=== PATIENT | female | born 2000 | race Caucasian/White ===

== ENCOUNTER 2023-11-04 16:09 | Emergency (ER) | payer SELFPAY ==
[2023-11-04 16:13] VITALS: BP 139/99; PULSE 105; RESP 20; TEMP 37.2; O2SAT 96; BMI 36.6
[2023-11-04 17:19] LABS: SARS-CoV-2 Ag POSITIVE (NEGATIVE)
[2023-11-04 17:22] LABS: Influenza Virus A Antigen Negative; Influenza Virus B Antigen Negative; Internal Control Within Normal Limits
--- NOTE | 2023-11-04 17:26 | ED.URI1 ---
HPI - URI/Sore Throat General Chief Complaint: Upper Respiratory Infection Stated Complaint: Upper Respitatory Infection Time Seen by Provider: 11/04/23 16:31 Source: patient History of Present Illness HPI Narrative: Patient is a 23-year-old Female who presents to the emergency department for flulike illness that began yesterday. She reports fevers, cough, congestion, sore throat, body aches, diarrhea. No vomiting. No concern for . She has been using vput-[id number] medications without improvement. No sick contacts in the home. Related Data Previous Rx's Medication Instructions Recorded sbyxyehijsfrrsg-fwimhhfxtcrjhhl-LS 10 ml PO Q6H PRN cold symptoms 11/04/23 2 mg-30 mg-10 mg/5 mL oral syrup #200 mL (Bromfed DM) ondansetron 4 mg disintegrating 4 mg PO Q6H PRN nausea and 11/04/23 tablet vomiting #12 tabs Allergies Allergy/AdvReac Type Severity Reaction Status Date / Time No Known Drug Allergies Allergy Verified 11/04/23 16:16 Review of Systems ROS Constitutional Reports: fever and chills Ears, nose, mouth, and throat Reports: throat pain and nasal congestion Cardiovascular Denies: chest pain Respiratory Reports: cough; Denies: shortness of breath Gastrointestinal Reports: nausea and diarrhea; Denies: vomiting Musculoskeletal Denies: back pain or neck pain Integumentary/Breast Denies: rash Neurological Reports: headache Exam Narrative Exam Narrative: Gen.: Awake, alert, in no distress Head: Normocephalic, atraumatic ENT: Moist mucous membranes, Bilateral TMs clear and no pharyngeal erythema. Hoarse voice. Uvula midline with airway widely open and patent. Respiratory: No respiratory distress, lungs clear bilaterally Cardio: Regular rate and rhythm Extremities: Moves extremities equally Psych: Normal mood and affect Neuro: No focal neuro deficit Skin: Warm, dry, intact Constitutional Vital Signs, click to edit/add: Last Vital Signs Temp 99.0 F 11/04/23 16:13 Pulse 105 H 11/04/23 16:13 Resp 20 11/04/23 16:13 BP 139/99 H 11/04/23 16:13 Pulse Ox 96 11/04/23 16:13 O2 Del Method Room Air 11/04/23 16:13 Course Vital Signs Vital signs: Vital Signs Temperature 99.0 F 11/04/23 16:13 Pulse Rate 105 H 11/04/23 16:13 Respiratory Rate 20 11/04/23 16:13 Blood Pressure 139/99 H 11/04/23 16:13 Pulse Oximetry 96 11/04/23 16:13 Oxygen Delivery Method Room Air 11/04/23 16:13 Temperature 99.0 F 11/04/23 16:13 Pulse Rate 105 H 11/04/23 16:13 Respiratory Rate 20 11/04/23 16:13 Blood Pressure 139/99 H 11/04/23 16:13 Pulse Oximetry 96 11/04/23 16:13 Oxygen Delivery Method Room Air 11/04/23 16:13 MDM - URI/Sore Throat MDM Narrative Medical decision making narrative: Patient tested positive for COVID, vital signs stable, lungs clear. She is discharged with Bromfed-DM, Zofran. Decadron given in the ER. Increase fluids and Motrin and Tylenol for comfort. Follow-up PCP and return to the ER if symptoms change or worsen Medical Records Attestation: I reviewed the patient's medical records. Lab Data Attestation: I reviewed the patient's lab results. Labs: Lab Results 11/04/23 Range/Units 16:19 Influenza Type A Ag Negative Influenza Type B Ag Negative SARS-CoV-2 Ag (CV2AG) Positive A (NEGATIVE) Discharge Plan Discharge Chief Complaint: Upper Respiratory Infection Clinical Impression: COVID-19 Patient Disposition: Home, Self-Care Time of Disposition Decision: 17:24 Condition: Good Prescriptions / Home Meds: New gzdgvkgurjudfke-fkpokgrbn-QK [Bromfed DM] 2-30-10 mg/5 mL syrup 10 ml PO Q6H PRN (Reason: cold symptoms) Qty: 200 0RF ondansetron 4 mg tablet,disintegrating 4 mg PO Q6H PRN (Reason: nausea and vomiting) Qty: 12 0RF Instructions: COVID-19 (Coronavirus Disease 2019) (ED), How to Recover from COVID-19 at Home (ED) Stand Alone Forms: Portal Instructions Referrals: Physician,Non-Staff, MD [Primary Care Provider] - 1 week
[2023-11-04] MEDS: DEXAMETHASONE SOD PHOS 10 MG/ML VIAL PO (17:34)
== END 2023-11-04 17:39 | disposition home or self-care (01) ==
PROVIDERS: Emergency Provider Emergency Medicine Emergency Medical Services
DX: U07.1 COVID-19 (principal)
CPT/HCPCS: 87804; 87811; 99284; J1100

== ENCOUNTER 2024-02-11 17:43 | Emergency (ER) | payer MEDICAID, SELFPAY ==
--- NOTE | 2024-02-11 17:49 | ED_ITS ---
HPI HPI - General Adult General Chief complaint: Headache Stated complaint: migraine, body aches Time Seen by Provider: 02/11/24 17:49 History of Present Illness HPI narrative: Patient is a 23-year-old female with a history of ocular migraine who presents to the emergency department for 6-day history of headache located in the right eye and oriental orthodox. She states she has had similar migraines in the past but this headache is persisting longer than normal. She has not had imaging for her head in approximately 8 years. She denies any falls or injuries. She has not had any fevers, chills, upper respiratory symptoms but she states she is diffusely achy and has bodyaches throughout. She is not concerned for . She has been using Advil with some relief but the headache returns quickly. She has not had any visual loss, vomiting. She reports decreased oral intake as she has poor appetite. Related Data Previous Rx's ?Medication ?Instructions ?Recorded ketorolac 10 mg tablet 10 mg PO TID PRN pain #10 tabs 02/11/24 methocarbamol 750 mg tablet 750 mg PO TID PRN pain #20 tabs 02/11/24 ondansetron 4 mg disintegrating 4 mg PO Q6H PRN nausea and 02/11/24 tablet vomiting #12 tabs Allergies Allergy/AdvReac Type Severity Reaction Status Date / Time No Known Drug Allergies Allergy Verified 11/04/23 16:16 Opioid HPI Opioid Management Most Recent Opioid Data: Last Pain Scale 8 02/11/24 18:33 Last MAR Pain Assessment 02/11/24 18:33 Review of Systems ROS Constitutional Denies: fever or chills Ears, nose, mouth, and throat Denies: throat pain, neck pain or nasal congestion Cardiovascular Denies: chest pain Respiratory Denies: shortness of breath or cough Gastrointestinal Denies: nausea or vomiting Genitourinary Denies: painful urination Musculoskeletal Reports: back pain; Denies: neck pain Integumentary/Breast Denies: rash Neurological Reports: headache; Denies: numbness in extremities or weakness in extremities Endocrine Denies: excessive urination Hematologic/Lymphatic Denies: easy bruising or easy bleeding Exam Narrative Exam Narrative: Gen.: Awake, alert, in no distress Head: Normocephalic, atraumatic, No photophobia noted ENT: Moist mucous membranes, Bilateral TMs clear, no pharyngeal erythema, no nuchal rigidity or meningismus. Respiratory: No respiratory distress, lungs clear bilaterally Cardio: Regular rate and rhythm Extremities: Moves extremities equally Psych: Normal mood and affect Neuro: No focal neuro deficit Skin: Warm, dry, intact Constitutional Vital Signs, click to edit/add: Last Vital Signs Temp 99.3 F 02/11/24 17:50 Pulse 65 02/11/24 19:40 Resp 14 02/11/24 19:40 BP 111/54 02/11/24 19:40 Pulse Ox 99 02/11/24 19:40 O2 Del Method Room Air 02/11/24 19:40 Course Vital Signs Vital signs: Vital Signs Temperature 99.3 F 02/11/24 17:50 Pulse Rate 90 02/11/24 17:50 Respiratory Rate 18 02/11/24 17:50 Blood Pressure 121/82 02/11/24 17:50 Pulse Oximetry 100 02/11/24 17:50 Oxygen Delivery Method Room Air 02/11/24 17:50 Temperature 99.3 F 02/11/24 17:50 Pulse Rate 65 02/11/24 19:40 Respiratory Rate 14 02/11/24 19:40 Blood Pressure 111/54 02/11/24 19:40 Pulse Oximetry 99 02/11/24 19:40 Oxygen Delivery Method Room Air 02/11/24 19:40 Medical Decision Making MDM Narrative Medical decision making narrative: CT of the brain, lab studies, viral swabs are all negative. Patient is treated with IV fluids, Toradol, Reglan, Benadryl in the ER. Patient is resting comfortably on reevaluation, she states her headache is improving and after her fluids are done she will be discharged home with prescriptions to follow-up with PCP and return to the ER if symptoms change or worsen Medical Records Medical records reviewed: Yes I reviewed the patient's medical records Lab Data Lab results reviewed: Yes I reviewed the patient's lab results Labs: Lab Results 02/11/24 02/11/24 Range/Units 18:00 18:12 WBC 6.2 (4.0-11.0) 10^3/uL RBC 4.63 (4.20-5.40) 10^6/uL Hgb 12.3 (12.0-16.0) g/dL Hct 39.4 (36.0-48.0) % MCV 85.1 (81.0-99.0) fL MCH 26.6 L (26.7-34.0) pg MCHC 31.2 (29.9-35.2) g/dL RDW 14.2 (11.0-15.0) % Plt Count 260 (150-450) 10^3/uL MPV 9.2 L (9.5-13.5) fL Neut % (Auto) 48.2 (43.0-75.0) % Lymph % (Auto) 39.0 (20.5-60.0) % [place] % (Auto) 11.0 (1.7-12.0) % Eos % (Auto) 1.1 (0.9-7.0) % Baso % (Auto) 0.5 (0.2-2.0) % Neut # (Auto) 3.0 (1.4-6.5) 10^3/uL Lymph # (Auto) 2.4 (1.2-3.8) 10^3/uL [place] # (Auto) 0.7 (0.3-0.8) 10^3/uL Eos # (Auto) 0.1 (0.0-0.7) 10^3/uL Baso # (Auto) 0.0 (0.0-0.1) 10^3/uL Abs Immat Gran (auto) 0.01 (0.00-0.03) 10^3/uL Imm/Tot Granulo (auto) 0.2 (0.0-0.5) % Sodium 138 (136-145) mmol/L Potassium 3.9 (3.5-5.1) mmol/L Chloride 102 (98-107) mmol/L Carbon Dioxide 27.1 (21.0-32.0) mmol/L Anion Gap 12.8 BUN 11.0 (7.0-18.0) mg/dL Creatinine 0.66 (0.55-1.02) mg/dL Est GFR ( Amer) >60 (>=60) Est GFR (Non-Af Amer) >60 (>=60) BUN/Creatinine Ratio 16.7 Glucose 91 (74-106) mg/dL Calcium 9.6 (8.5-10.1) mg/dL Serum HCG, Qual Negative (NEGATIVE) Influenza Type A Ag Negative Influenza Type B Ag Negative RSV Antigen Not detected (NOT DETECTE) SARS-CoV-2 Ag (CV2AG) Negative (NEGATIVE) Imaging Data CT scan - head: Attestation: I have reviewed the pertinent imaging results. Radiologist's impression: ITS Impressions Head CT 02/11/24 18:28 IMPRESSION: No acute intracranial process. Electronically authenticated by: WALDO WHITE Date: 02/11/2024 18:54 Discharge Plan Discharge Stand Alone Forms: Portal Instructions Chief Complaint: Headache Clinical Impression: Headache Patient Disposition: Home, Self-Care Time of Disposition Decision: 19:00 Condition: Good Prescriptions / Home Meds: New ketorolac 10 mg tablet 10 mg PO TID PRN (Reason: pain) Qty: 10 0RF methocarbamol 750 mg tablet 750 mg PO TID PRN (Reason: pain) Qty: 20 0RF ondansetron 4 mg tablet,disintegrating 4 mg PO Q6H PRN (Reason: nausea and vomiting) Qty: 12 0RF Print Language: Irish Instructions: Acute Headache (ED) Referrals: Physician,Non-Staff, MD [Primary Care Provider] - 1 week Discharge Date/Time: 02/11/24 19:46
[2024-02-11 17:50] VITALS: BP 121/82; PULSE 90; TEMP 37.4; O2SAT 100; BMI 37.6
--- OUTSIDE RECORDS SUMMARY | 2024-02-11 17:51 | XMS_ITS | CCD ---
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 Name Role Phone Dayanara Kidd Primary Care Provider [phone] Unavailable Primary Care Provider Micheal Swan MD [facility] Primary Care Provider EMILIANO JEFFERY Attending Unavailable ANGIE DEGROOT Attending Unavailable JASSI Primary Care Unavailable Medications Current Medications Medication Drug Class(es) Dates Sig (Normalized) Sig (Original) {24 (drospirenone 3 MG / ethinyl estradiol 0.02 MG Oral Tablet) / 4 (inert ingredients 1 MG Oral Tablet) } Pack [Susan 28 Day] (2 sources) Progestin, Estrogen Start: 02-25-2021 SUSAN 3-0.02 MG Oral Tablet 02/25/2021 Provider: Dayanara BENJAMIN loperamide hydrochloride 2 mg oral capsule (1 source) Opioid Agonist Start: 05-31-2021 End: 06-10-2021 take 1 capsule by mouth four times daily as needed for diarrhea loperamide (RA ANTI-DIARRHEAL) 2 MG capsule Take 1 capsule by mouth 4 times daily as needed for Diarrhea 20 capsule 0 05/31/2021 06/10/2021 Active predniSONE 10 mg oral tablet (1 source) Start: 04-25-2021 End: 05-01-2021 predniSONE (DELTASONE) 10 MG tablet Take 1 tablet by mouth See Admin Instructions for 6 days Take 4 tablets by mouth daily for days 1-2. Take 3 tablets by mouth daily for days 3-4. Take 2 tablets by mouth daily day 5. Take 1 tablet by mouth on day 6 17 tablet 0 04/25/2021 05/01/2021 Active sertraline 100 mg oral tablet (6 sources) Serotonin Reuptake Inhibitor Start: 02-25-2021 Zoloft 100 MG Oral Tablet 02/25/2021 Provider: Dayanara BENJAMIN Start: 02-25-2021 Zoloft 100 MG Oral Tablet 02/25/2021 Provider: Dayanara BENJAMIN Start: 01-29-2021 Zoloft 50 MG O ral Tablet 01/29/2021 Provider: Dayanara BENJAMIN take 1 tablet by kay th once daily sertraline (ZOLOFT) 100 MG tablet Take 100 mg by mouth daily 0 Active Completed/Discontinued Medications Medication Drug Class(es) Dates Sig (Normalized) Sig (Original) acetaminophen 325 mg oral tablet (1 source) Start: 05-31-2021 End: 05-31-2021 acetaminophen (TYLENOL) tablet 650 mg Start: 05-31-2021 End: 05-31-2021 acetaminophen (TYLENOL) tabl et 650 mg azithromycin 250 mg oral tablet (3 sources) Macrolide Antimicrobial Start: 01-29-2021 End: 02-25-2021 Zithromax Z-Kenny 250 MG Oral Tablet 01/29/2021 - 02/25/2021 Provider: Dayanara BENJAMIN 50 ml sodium chloride 9 mg/ml injection (1 source) Start: 05-31-2021 End: 05-31-2021 0.9 % sodium chloride bolus Problems Active Problems Problem Classification Problem Date Documented Da te Episodic/Chronic Adjustment disorders (13 sources) Adjustment disorder with depressed mood; Translations: [Adjustment disorder with depressed mood] Onset: 01-29-2021 Chronic Contraceptive and procreative management (2 sources) Contraception care management; Translations: [Unspecified contraceptive management] Onset: 02-25-2021 Episodic Immunizations and screening for infectious disease (2 sources) HIV screening; Translations: [Special screening examination for other specified viral diseases] Onset: 01-29-2021 Episodic Other connective tissue disease (1 source) Tendonitis of right wrist; Translations: [Other enthesopathies, not elsewhere classified] Episodic Other gastrointestinal disorders (1 source) Diarrhea; Translations: [Diarrhea, unspecified] Episodic Other nutritional; endocrine; and metabolic disorders (5 sources) Simple obesity ; Translations: [Obesity, unspecified] Onset: 01-29-2021 Chronic Other nutritional; endocrine; and metabolic disorders (4 sources) Finding of body mass index; Translations: [Body mass index (observable entity)] Onset: 01-29-2021 Chronic Other screening for suspected conditions (not mental disorders or infectious disease) (3 sources) Encounter for screening for diabetes mellitus; Translations: [Diabetes Risk Test Score] Onset: 01-29-2021 Episodic Other upper respiratory infections (3 sources) Acute sinusitis; Translations: [Acute sinusitis, unspecified] Onset: 01-29-2021 Episodic Past or Other Problems Problem Classification Problem Date Documented Date Episodic/Chronic Unclassified (1 source) Finding of body mass index; Translations: [Body mass index (observable entity)] Onset: 01-29-2021 Unclassified (1 source) History AND physical examination; Translations: [Routine (qualifier value)] Onset: 01-29-2021 Unclassified (1 source) HIV screening; Translations: [Assessment of Visit For: Screening Exam For Human Immunodeficiency Virus] Onset: 01-29-2021 Results Test Name Value Interpretation Reference Range Facil ity XR WRIST RIGHT (MIN 3 VIEWS) on 04-25-2021 XR WRIST RIGHT (MIN 3 VIEWS) EXAMINATION: 3 XRAY VIEWS OF THE RIGHT WRIST 04/25/2021 9:04 am COMPARISON: None. HISTORY: ORDERING SYSTEM PROVIDED HISTORY: trauma, pain Reason for Exam: C/o posterior mid carpal pain after lifting object Acuity: Acute Type of Exam: Initial FINDINGS: Carpal bones and alignment are maintained. Distal radius and ulna are intact. No acute fracture or dislocation. IMPRESSION: Negative right wrist. Interpreted by: Tiago Ulrich MD Signed by: Taigo Ulrich MD 04/25/21 Final result Normal [facility] XR WRIST RIGHT (MIN 3 VIEWS) Ordered By: Emiliano Jeffery on 04-25-2021 Negative right wrist. [employer] Phone: EXAMINATION: 3 XRAY VIEWS OF THE RIGHT WRIST 04/25/2021 9:04 am COMPARISON: None. HISTORY: ORDERING SYSTEM PROVIDED HISTORY: trauma, pain Reason for Exam: C/o posterior mid carpal pain after lifting object Acuity: Acute Type of Exam: Initial FINDINGS: Carpal bones and alignment are maintained. Distal radius and ulna are intact. No acute fracture or dislocation. [employer] Phone: [place], [employer] Incoming Radiant Results From [employer] - 04/25/2021 9:16 AM EDT EXAMINATION: 3 XRAY VIEWS OF THE RIGHT WRIST 04/25/2021 9:04 am COMPARISON: None. HISTORY: ORDERING SYSTEM PROVIDED HISTORY: trauma, pain Reason for Exam: C/o posterior mid carpal pain after lifting object Acuity: Acute Type of Exam: Initial FINDINGS: Carpal bones and alignment are maintained. Distal radius and ulna are intact. No acute fracture or dislocation. IMPRESSION: Negative right wrist. [employer] Work Phone: [employer] Work Phone: Vital Signs Date Time Vital Sign Value Performing Clinician Facility 05-31-2021 15:38-0400 Heart rate 75 /min Angie Degroot MD Work Phone: [employer] Work Phone: 05-31-2021 14:31-0400 Body height 170.2 cm Anige Degroot MD Work Phone: [employer] Work Phone: 05-31-2021 14:31-0400 Body mass index (BMI) [Ratio] 36.02 kg/m2 Angie Degroot MD Work Phone: [employer] Work Phone: 05-31-2021 14:31-0400 Body temperature 98.29 [degF] Angie Degroot MD Work Phone: [employer] Work Phone: 05-31-2021 14:31-0400 Body weight 104.33 kg Angie Degroot MD Work Phone: [employer] Work Phone: 05-31-2021 14:31-0400 Diastolic blood pressure 78 mm[Hg] Angie Degroot MD Work Phone: [employer] Work Phone: 05-31-2021 14:31-0400 Respiratory rate 16 /min Angie Degroot MD Work Phone: [employer] Work Phone: 05-31-2021 14:31-0400 SaO2% (BldA) [Mass fraction] 99 % Angie Degroot MD Work Phone: [employer] Work Phone: 05-31-2021 14:31-0400 Systolic blood pressure 121 mm[Hg] Angie Degroot MD Work Phone: [employer] Work Phone: 04-25-2021 08:44-0400 Body temperature 97.81 [degF] Emiliano Jeffery DO Work Phone: [employer] Work Phone: 04-25-2021 08:44-0400 Diastolic blood pressure 74 mm[Hg] Emiliano Jeffery DO Work Phone: [employer] Work Phone: 04-25-2021 08:44-0400 Heart rate 90 /min Emiliano Jeffery DO Work Phone: [employer] Work Phone: 04-25-2021 08:44-0400 Respiratory rate 14 /min Emiliano Jeffery DO Work Phone: [employer] Work Phone: 04-25-2021 08:44-0400 SaO2% (BldA) [Mass fraction] 98 % Emiliano Jeffery DO Work Phone: [employer] Work Phone: 04-25-2021 08:44-0400 Systolic blood pressure 127 mm[Hg] Emiliano Jeffery DO Work Phone: [employer] Work Phone: 02-25-2021 10:51-0400 Body height 170.[address] [facility] Work Phone: [facility] Work Phone: 02-25-2021 10:51-0400 Body mass index (BMI) [Percentile] 99 {percentile} Dayanara Kidd [facility] Work Phone: [facility] Work Phone: 02-25-2021 10:51-0400 Body mass index (BMI) [Ratio] 35.8 kg/m2 Dayanararossy UMANZORP Work Phone: [facility] Work Phone: 02-25-2021 10:51-0400 Body surface area Derived from formula 2.[address] [facility] Work Phone: [facility] Work Phone: 02-25-2021 10:51-0400 Body temperature 99.5 [degF] Dayanara Marti [facility] Work Phone: [facility] Work Phone: 02-25-2021 10:51-0400 Body weight 103.69 kg Dayanara Marti UMANZORP Work Phone: [facility] Work Phone: 02-25-2021 10:51-0400 Diastolic blood pressure 80 mm[Hg] Dayanara Marti UMANZORP Work Phone: [facility] Work Phone: 02-25-2021 10:51-0400 Heart rate 84 /min Dayanara Marti UMANZORP Work Phone: [facility] Work Phone: 02-25-2021 10:51-0400 Respiratory rate 20 /min Dayanara Marti UMANZORP Work Phone: [facility] Work Phone: 02-25-2021 10:51-0400 SaO2% (BldA) [Mass fraction] 99 % Dayanara Marti UMANZORP Work Phone: [facility] Work Phone: 02-25-2021 10:51-0400 Systolic blood pressure 110 mm[Hg] Dayanara Kidd [employer] Work Phone: [facility] Work Phone: 01-29-2021 14:53-0400 BMI (Body Mass Index) 36.4 kg/m2 [facility] Work Phone: 01-29-2021 14:53-0400 Body mass index (BMI) [Percentile] 99 {percentile} [facility] Work Phone: 01-29-2021 14:53-0400 Body Temperature 97.9 [degF] [facility] Work Phone: 01-29-2021 14:53-0400 Body weight 105.42 kg [facility] Work Phone: 01-29-2021 14:53-0400 BP Diastolic 58 mm[Hg] [facility] Work Phone: 01-29-2021 14:53-0400 BP Systolic 96 mm[Hg] [facility] Work Phone: 01-29-2021 14:53-0400 BSA (Body Surface Area) 2.16 m2 [facility] Work Phone: 01-29-2021 14:53-0400 Height 170.18 cm [facility] Work Phone: 01-29-2021 14:53-0400 Pulse (Heart Rate) 102 /min [facility] Work Phone: 01-29-2021 14:53-0400 Pulse Oximetry 98 % [facility] Work Phone: 01-29-2021 14:53-0400 Respiratory Rate 20 /min [facility] Work Phone: 01-29-2021 14:53-0400 SaO2% (BldA) [Mass fraction] 98 % Dayanara Kidd [employer] Work Phone: [facility] Work Phone: Encounters Encounter Date Encounter Type Care Provider Facility Start: 05-31-2021 End: 05-31-2021 Emergency department patient visit ANGIE DEGROOT [facility] Start: 05-31-2021 End: 05-31-2021 Emergency department patient visit Angie Degroot MD Work Phone: [facility] ED Comment on above: Diarrhea, unspecifie d type (Primary Dx) Start: 04-25-2021 End: 04-25-2021 Emergency department patient visit EMILIANOBHUMI JEFFERY [facility] Start: 04-25-2021 End: 04-25-2021 Emergency department patient visit Emiliano Jeffery DO Work Phone: [facility] ED Comment on above: Tendonitis of wrist, right (Primary Dx) Start: 02-25-2021 End: 02-25-2021 FQHC visit, estab pt Mirtha Lara Work Phone: [facility] Work Phone: Start: 01-29-2021 End: 01-29-2021 Established patient Mirtha Lara Work Phone: [facility] Work Phone: Start: 01-29-2021 End: 01-29-2021 New patient Dayanara Kidd Work Phone: [facility] Work Phone: Start: 01-29-2021 End: 01-29-2021 Viscer and infrarenal abdom aorta 1 prosthesis Dayanara Marti BENJAMIN Work Phone: [facility] Work Phone: Procedures Date Procedure Procedure Detail Performing Clinician Start: 04-25-2021 Radex wrist complete minimum 3 views Emiliano Jeffery DO Work Phone: Start: 02-25-2021 Most recent diastoli c blood pressure 80-89 mm hg Dayanara UMANZORP Work Phone: Start: 02-25-2021 Most recent hemoglob in a1c level < 7.0% Dayanara UMANZORP Work Phone: Start: 02-25-2021 Most recent systolic blood pressure <130 mm hg Dayanararossy UMANZORP Work Phone: Start: 02-25-2021 Psychotherapy w/maribell ent 30 minutes Mirtha Lara Work Phone: Start: 02-25-2021 Urine test visual color cmprsn meths Dayanararossy Kidd [facility] Work Phone: Start: 01-29-2021 Antibody hiv-1&hiv-2 single result Dayanararossy Kidd Work Phone: Start: 01-29-2021 Diast bp <80 mm hg Jaquan calle Marti Work Phone: Start: 01-29-2021 Hemoglobin glycosyla mami a1c Dayanararossy Kidd Work Phone: Start: 01-29-2021 Psychotherapy w/maribell ent 30 minutes Mirtha Lara Work Phone: Start: 01-29-2021 Pt-focused hlth risk assmt score doc stnd instrm Dayanararossy Kidd Work Phone: Start: 01-29-2021 Syst bp lt 130 mm hg Ab fidelina Marti Work Phone: NEGATED: Highlighted row has not occurred!Start: 01-29-2021 H/O: surgery Dayanararossy Kidd [facility] Work Phone: Plan of Treatment Date Care Activity Detail Author Start: 06-26-2021 Influenza vaccination Flu vaccine (# 1) [facility] Work Phone: Start: 04-01-2021 FQHC visit, estab pt Medical E stablished Patient [facility] Work Phone: Start: 02-25-2021 Medical Establ ished Patient [facility] Work Phone: Start: 2020 DTaP/Tdap/Td vaccine (1 - Tdap) DTaP/Tdap/Td vaccine (1 - Tdap) [facility] Work Phone: Start: 2017 Screening for Chlamy marbin trachomatis Chlamydia screen [facility] Work Phone: Start: 2016 HIV screening HIV screen [facility] Work Phone: Start: 2013 COVID-19 Vaccine (1) COVID-19 Vaccin e (1) [facility] Work Phone: Start: 2012 HPV vaccine (1 - 2-d ose series) HPV vaccine (1 - 2-dose series) [facility] Desk Phone: Start: 2002 Varicella vaccine (1 of 2 - 2-dose childhood series) Varicella vaccine (1 of 2 - 2-dose childhood series) [facility] Desk Phone: Start: 2001 Hepatitis C screening Hepatitis C sc reen [facility] Work Phone: Payers Date Payer Category Payer Unknown [id number] 2001 Unknown [id number] 2001 Unknown [id number] Social History Date Type Detail Facility Assertion Emotional stress (finding) [facility] Work Phone: Assertion [facility] Work Phone: Assertion Heterosexual (finding) [facility] Work Phone: Assertion Lives with evan machado (finding) [facility] Work Phone: Assertion Full-time employ ment (finding) [facility] Work Phone: Assertion Sexually active (finding) [facility] Work Phone: Assertion Gender identity finding (finding) [facility] Work Phone: Assertion Finding of sexua l orientation (finding) [facility] Work Phone: Tobacco smoking status Unknown if ever smoked [facility] Work Phone: Start: 04-25-2021 End: 05-31-2021 Tobacco smoking status NHIS Never smoker [employer] Phone: Start: 04-25-2021 End: 05-31-2021 Tobacco use and exposure Never used [employer] Start: 04-25-2021 Alcohol Comment sometimes [employer] Work Phone: Start: 2001 Sex Assigned At Not on file [employer] Phone: Exposure to SARS-CoV-2 (event) Not sure [employer] NEGATED: Highlighted row Assertion Criminal behavior (finding) [facility] Work Phone: NEGATED: Highlighted row Assertion Current drinker of alcohol (finding) [facility] Work Phone: NEGATED: Highlighted row Assertion Finding relating to drug misuse behavior (finding) [facility] Work Phone: NEGATED: Highlighted row Assertion Exposure to pollution (event) [facility] Work Phone: NEGATED: Highlighted row Assertion Tobacco user (finding) [facility] Work Phone: NEGATED: Highlighted row Assertion No- not a current tobacco user [facility] Work Phone: Mental Status Date Assessment Result Facility Cognitive function Cognitive fun ctioning was normal Cognitive function finding (finding) [facility] Work Phone: Clinical Notes 01-29-2021 to 05-31-2021 InstructionsAttachments Note Date & Type Note Facility 05-31-2021 Hospital Discharg e instructions Angie Degroot MD - 05/31/2021 Drink plenty of fluids. Imodium as needed for diarrhea. Return for worsening pain, fever, blood in stool or emesis, or if worse in any way. PLEASE RETURN TO THE EMERGENCY DEPARTMENT IMMEDIATELY if your symptoms worsen in anyway or in 8-12 hours if not improved for re-evaluation. You should immediately return to the ER for symptoms such as increasing pain, bloody stool, fever, a feeling of passing out, light headed, dizziness, chest pain, shortness of breath, persistent nausea and/or vomiting, numbness or weakness to the arms or legs, coolness or color change of the arms or legs. Take your medication as indicated and prescribed. If you are given an antibiotic then, make sure you get the prescription filled and take the antibiotics until finished. Please understand that at this time there is no evidence for a more serious underlying process, but that early in the process of an illness or injury, an emergency department workup can be falsely reassuring. You should contact your family doctor within the next 24 hours for a follow up appointment THANK YOU!!! From [facility] and [facility] On behalf of the Emergency Department staff at [facility], I would like to thank you for giving us the opportunity to address your health care needs and concerns. We hope that during your visit, our service was delivered in a professional and caring manner. Please keep [facility] in mind as we walk with you down the path to your own personal wellness. Please expect an automated text message or email from us so we can ask a few questions about your health and progress. Based on your answers, a clinician may call you back to offer help and instructions. Please understand that early in the process of an illness or injury, an emergency department workup can be falsely reassuring. If you notice any worsening, changing or persistent symptoms please call your family doctor or return to the ER immediately. Tell us how we did during your visit at [email or web address] and let us know about your experience The following attachments cannot be sent through Care Everywhere.Diarrhea (Nepali)documented in this encounter [facility] [employer] Work Phone: 01-29-2021 History general Narrative - Reported Includes: Medical History in patient's chart No medical history or no significant history 01/29/2021 Not currently nursing 01/29/2021 Not 01/29/[address] [facility] Work Phone: 1(674) 265-397904-06-2021 History general Narrative - Reported Includes: Medical History in patient's chart Description Last Updated Not currently nursing 02/25/2021 Not 02/25/2021 No medical history or no significant his tory 01/29/2021 [facility] Work Phone: Evaluation note Includes: Assessments for all patient encounters Findings Encounter Date Adjustment disorder with depressed mood Established Patient with Mirthagenaro Ferrariroe 02/25/2021 [Z68.35 - Body mass index [B ME] 35.0-35.9, adult] body mass index Medical Established Patient with Dayanara UMANZORP 02/25/2021 Adjustment disorder with depressed mood Medical Established Patient with Dayanara UMANZORP 02/25/2021 Assessment of visit for: con traceptive management Medical Established Patient with Dayanara UMANZORP 02/25/2021 Obesity due to excess calories Medical E stablished Patient with Dayanara Marti [employer] 02/25/2021 Adjustment disorder with depressed mood Established Patient with Mirtha Ferrariroe 01/29/2021 [Z11.4 - Encounter for mojgan womack for human immunodeficiency virus [HIV]] assessment of visit for: screening for human immunodeficiency virus Medical New Patient with Dayanara UMANZORP 01/29/2021 [Z13.1 - Encounter for mojgan womack for diabetes mellitus] Diabetes Risk Test Score was three score 01/29/2021 Medical New Patient with Dayanara UMANZORP 01/29/2021 [Z68.36 - Body mass index [B ME] 36.0-36.9, adult] body mass index Medical New Patient with Dayanara UMANZORP 01/29/2021 Adjustment disorder with depressed mood Medical New Patient with Dayanara UMANZORP 01/29/2021 Assess acute sinusitis Medical New Patie nt with Dayanara UMANZORP 01/29/2021 Assess routine history and physical Medi bladimir New Patient with Dayanara Kidd [facility] 01/29/2021 Obesity due to excess calories Medical N ew Patient with Dayanara Kidd [facility] 01/29/2021 [facility] Work Phone: Evaluation note* Diagnosis Tendonitis of wrist, right- Primary Other tenosynovitis of hand and wrist [facility]* Diagnosis Diarrhea, unspecified type- Primary [facility] Phone: History of Present illness Narrative History of Present Illness not supported for this document type No History of Present Illness [facility] Work Phone: Hospital Discharge instructions* Instructions* Emiliano Jeffery DO - 04/25/2021 Please make an appointment to follow up with your primary doctor and/or the specialist as we discussed. Take all medications as prescribed. Return to ER if condition worsens or you develop any new/concerning symptoms as we discussed. * Attachments The following attachments cannot be sent through Care Everywhere. * Wrist Tendinitis Exercises (Nepali[facility] Phone: Instructions Instructions not supported for this document type No [facility] Work Phone: Patient problem outcome Narrative Includes: Evaluations & Outcomes for active Goals No [facility] Work Phone: Reason for referral (narrative)No Reason for Referral [facility] Work Phone: Review of systems Narrative - Reported Review of Systems not supported for this document type No Review of Systems [facility] Work Phone: Reason for Referral No Reason for Referral Recorded Assessments Note No prior surgery or no signi ficant history Findings Encounter Date Adjustment disorder with depressed mood BH Established Patient with Mirthagenaro Ferrariroe 01/29/2021 [Z11.4 - Encounter for mojgan womack for human immunodeficiency virus [HIV]] assessment of visit for: screening for human immunodeficiency virus Medical New Patient with Dayanara Kidd [facility] 01/29/2021 [Z13.1 - Encounter for mojgan womack for diabetes mellitus] Diabetes Risk Test Score was three score 01/29/2021 Medical New Patient with Dayanara UMANZORP 01/29/2021 [Z68.36 - Body mass index [B ME] 36.0-36.9, adult] body mass index Medical New Patient with Dayanara Kidd [facility] 01/29/2021 Adjustment disorder with depressed mood Medical New Patient with Dayanara Kidd [facility] 01/29/2021 Assess acute sinusitis Medical New Patie nt with Dayanara Kidd [facility] 01/29/2021 Assess routine history and physical Medi bladimir New Patient with Dayanara Kidd [facility] 01/29/2021 Obesity due to excess calories Medical N ew Patient with Dayanara Kidd [facility] 01/29/2021 Instructions Instructions not supported for this document type No Instructions Recorded History of Present Illness History of Present Illness not supported for this document type No History of Present Illness Recorded Family History No Family History Records Found Description Last Updated Maternal history of endocrine disorder 0 01/29/2021 Maternal history of type 2 diabetes penny itus 01/29/2021 Review of System Review of Systems not supported for this document type No Review of Systems Recorded Physical Exam Physical Exam not supported for this document type No Physical Exam Recorded Physical Exam not supported for this document type No Physical Exam Recorded Physical Exam not supported for this document type No Physical Exam Recorded Advance Directives Includes: Current Advance Directives No Advance Directives Recorded Includes: Current Advance Directives No Advance Directives Recorded Includes: Current Advance Directives No Advance Directives RecordedNo Advanced Directives Records Found Summary Purpose Additional Source Comments Medical History (unrecognize d section and content) Description No medical history or no significant his tory 01/29/2021 Not currently nursing 01/29/2021 Not 01/29/2021 Evaluations & Outcomes (unre cognized section and content) Includes: Evaluations & Outcomes for active GoalsNo Outcomes Recorded Reason for Visit (unrecogniz ed section and content) Reason Comments Wrist Pain right Reason Comments Other thinks she is dehydr ated, diarrhea started last night able to drink and keep down fluids today. Ordered Prescriptions (unrec ognized section and content) Prescription Sig Dispensed Refills Start Date End Da te predniSONE (DELTASONE) 10 MG tablet Take 1 tablet by mouth See Admin Instructions for 6 days Take 4 tablets by mouth daily for days 1-2. Take 3 tablets by mouth daily for days 3-4. Take 2 tablets by mouth daily day 5. Take 1 tablet by mouth on day 6 17 tablet 0 04/25/2021 05/01/2021 Prescription Sig Dispensed Refills Start Date End Da te loperamide (RA ANTI-DIARRHEAL) 2 MG capsule Take 1 capsule by mouth 4 times daily as needed for Diarrhea 20 capsule 0 05/31/2021 06/10/2021 Scheduled Active and Recently Administ ered Medications (unrecognized section and content) Medication Order 05/29/2021 05/30/2021 05/31/2021 0.9 % sodium chloride bolus (COMPLETED) 1,000 mL (9.59 mL/kg), Intravenous, at 1,000 mL/hr, Administer over 1 Hours, ONCE, On Thu05/31/21 at 1445, For 1 dose 1445 (New Bag - Prov ider: Zuly Andrews RN)1538 (Stopped - Provider: Zuly Andrews RN) acetaminophen (TYLENOL) tablet 650 mg (COMPLETED) 650 mg, Oral, ONCE, On Thu05/31/21 at 1445, For 1 dose, Maximum dose of acetaminophen is 4000 mg from all sources in 24 hours. 1443 (Given - Provid er: Zuly Andrews RN) INFORMATION SOURCE (unrecogn ized section and content) DATE CREATED AUTHOR 06/02/2021 [facility] FOR RECORDS PERTAINING TO PATIENTS WHO ARE OR HAVE BEEN ENROLLED IN A CHEMICAL DEPENDENCY/SUBSTANCEABUSE PROGRAM, SOME INFORMATION MAY BE OMITTED. This clinical summary was aggregated from multiple sources. Caution should be exercised in using it in the provision of clinical care. This summary normalizes information from multiple sources, and as a consequence, information in this document may materially change the coding, format and clinical context of patient data. In addition, data may be omitted in some cases. CLINICAL DECISIONS SHOULD BE BASED ON THE PRIMARY CLINICAL RECORDS. [employer] provides no warranty or guarantee of the accuracy or completeness of information in this document.
[2024-02-11 18:25] LABS: Basophils Percent Auto 0.5 % (0.2-2.0); Eosinophils Absolute Auto 0.1 10^3/uL (0.0-0.7); Eosinophils Percent Auto 1.1 % (0.9-7.0); Hematocrit 39.4 % (36.0-48.0); Hemoglobin 12.3 g/dL (12.0-16.0); Immature Granulocytes Abs Auto 0.01 10^3/uL (0.00-0.03); Immature Granulocytes Pct Auto 0.2 % (0.0-0.5); Lymphocytes Absolute Auto 2.4 10^3/uL (1.2-3.8); Mean Corpuscular HGB Conc 31.2 g/dL (29.9-35.2); Mean Corpuscular Hemoglobin 26.6 pg (26.7-34.0); Mean Corpuscular Volume 85.1 fL (81.0-99.0); Mean Platelet Volume 9.2 fL (9.5-13.5); Monocytes Absolute Auto 0.7 10^3/uL (0.3-0.8); Neutrophils Percent Auto 48.2 % (43.0-75.0); Platelet Count 260 10^3/uL (150-450); Red Blood Count 4.63 10^6/uL (4.20-5.40); Red Cell Distribution Width 14.2 % (11.0-15.0); White Blood Count 6.2 10^3/uL (4.0-11.0)
--- NOTE | 2024-02-11 18:28 | CT_ITS ---
The [address] [address] Patient Name: CHEYENNE ALONSO MRN: [id number] date: 2000 Sex: F Assigned Patient Location: ER Current Patient Location: ER Accession/Order Number: [id number] Exam Date: 02/11/2024 18:22 Report Date: 02/11/2024 18:54 At the request of: ABDIFATAH GOMEZ Procedure: CT head/brain wo con EXAM: CT head/brain wo con HISTORY: Headache COMPARISON: None. TECHNIQUE: Axial CT scans through the head were obtained without IV contrast administration. Dose reduction techniques were achieved by using: automated exposure control and/or adjustment of mA and /or kV according to patient size and/or use of iterative reconstruction technique. FINDINGS: There is no acute intracranial hemorrhage or abnormal extra-axial fluid collection. No mass effect or midline shift is seen. There is no evidence of large acute territorial infarction. There is no hydrocephalus. To the limit of CT, the posterior fossa appears unremarkable. The calvaria and extra cranial soft tissues are unremarkable. The visualized orbits show no abnormality. The visualized paranasal sinuses show no air-fluid level. Mastoid air cells are clear. CT/CT head/brain wo con IMPRESSION: No acute intracranial process. Electronically authenticated by: WALDO WHITE Date: 02/11/2024 18:54
[2024-02-11] MEDS: 0.9 % SODIUM CHLORIDE 1,000 ML 1000 ML IV (18:32)
[2024-02-11] MEDS: DIPHENHYDRAMINE HCL 50 MG/ML (1ML) VIAL 25 MG IV (18:33)
[2024-02-11] MEDS: KETOROLAC TROMETHAMINE 30 MG/ML VIAL IVP (18:33)
[2024-02-11] MEDS: METOCLOPRAMIDE HCL 10 MG/2 ML VIAL IVP (18:33)
[2024-02-11 18:37] LABS: Internal Control Within Normal Limits; Respiratory Syncytial Virus Not Detected (NOT DETECTE); SARS-CoV-2 Ag NEGATIVE (NEGATIVE)
[2024-02-11 18:38] LABS: Influenza Virus A Antigen Negative; Influenza Virus B Antigen Negative; Internal Control Within Normal Limits
[2024-02-11 18:39] LABS: Anion Gap 12.8; BUN Creatinine Ratio 16.7; Calcium 9.6 mg/dL (8.5-10.1); Carbon Dioxide 27.1 mmol/L (21.0-32.0); Chloride 102 mmol/L (98-107); Estimated GFR (African America >60 (>=60); Estimated GFR (Non-African Ame >60 (>=60); Glucose 91 mg/dL (74-106); Potassium 3.9 mmol/L (3.5-5.1); Sodium 138 mmol/L (136-145)
[2024-02-11 18:48] LABS: HCG Qualitative NEGATIVE (NEGATIVE)
[2024-02-11 19:40] VITALS: BP 111/54; PULSE 65; O2SAT 99
== END 2024-02-11 19:46 | disposition home or self-care (01) ==
PROVIDERS: Physician Assistant; Emergency Provider Emergency Medicine
DX: R51.9 Headache, unspecified (principal); Z20.822 Contact with and (suspected) exposure to COVID-19
CPT/HCPCS: 36415; 70450; 80048; 84703; 85025; 87420; 87804; 87811; 96374; 96375; 99285

== ENCOUNTER 2024-04-27 09:52 | Emergency (ER) | payer SELFPAY ==
[2024-04-27 09:57] VITALS: BP 120/87; PULSE 89; TEMP 36.9; O2SAT 98; BMI 37.6
[2024-04-27 10:08] VITALS: O2SAT 98
[2024-04-27 10:29] LABS: Basophils Percent Auto 0.3 % (0.2-2.0); Eosinophils Absolute Auto 0.1 10^3/uL (0.0-0.7); Eosinophils Percent Auto 0.7 % (0.9-7.0); Hematocrit 39.6 % (36.0-48.0); Hemoglobin 12.6 g/dL (12.0-16.0); Immature Granulocytes Abs Auto 0.02 10^3/uL (0.00-0.03); Immature Granulocytes Pct Auto 0.3 % (0.0-0.5); Lymphocytes Absolute Auto 2.7 10^3/uL (1.2-3.8); Lymphocytes Percent Auto 38.1 % (20.5-60.0); Mean Corpuscular HGB Conc 31.8 g/dL (29.9-35.2); Mean Corpuscular Hemoglobin 27.4 pg (26.7-34.0); Mean Corpuscular Volume 86.1 fL (81.0-99.0); Mean Platelet Volume 9.1 fL (9.5-13.5); Monocytes Absolute Auto 0.6 10^3/uL (0.3-0.8); Monocytes Percent Auto 8.1 % (1.7-12.0); Neutrophils Absolute Auto 3.8 10^3/uL (1.4-6.5); Neutrophils Percent Auto 52.5 % (43.0-75.0); Platelet Count 282 10^3/uL (150-450); Red Cell Distribution Width 13.2 % (11.0-15.0); White Blood Count 7.1 10^3/uL (4.0-11.0)
--- NOTE | 2024-04-27 10:41 | ED_ITS ---
HPI HPI - General Adult General Chief complaint: Headache Stated complaint: HEADAHCE/ ABDOMINAL PAIN Time Seen by Provider: 04/27/24 09:54 Source: patient Mode of arrival: walk-in History of Present Illness HPI narrative: Patient presents ED complaining of headache. She states it has been there for the past week or so. She said it is worse when she is lying down or bending forward or tipping her head back. She does have a history of migraines but states this feels a little bit different. She did have a negative CT brain in January of this year. She also reports nausea for the past year. She states she wakes up in the night and is nauseated. She has never had that checked out. She is out of Zofran which usually does help her. She does have a history of diagnosed anxiety. She reports that her significant other grandmother recently and her grandmother has a new diagnosis of Alzheimer's so she has been a little bit stressed with that lately.Alert and oriented no acute distress vital signs stable Related Data Previous Rx's ?Medication ?Instructions ?Recorded ondansetron 4 mg disintegrating 4 mg PO DAILY PRN nausea and 04/27/24 tablet vomiting #15 tabs Allergies Allergy/AdvReac Type Severity Reaction Status Date / Time No Known Drug Allergies Allergy Verified 11/04/23 16:16 Opioid HPI Opioid Management Most Recent Opioid Data: Last Pain Scale 8 02/11/24 18:33 Review of Systems ROS Status of ROS 10 or more systems reviewed and unremark able except as noted in history and below Exam Narrative Exam Narrative: Time Seen: [] Vital Signs: [Per nurse's notes.] General: [Alert] Skin: [Warm, dry, no rash.] Head: [Normocephalic, atraumatic.] Neck: [Supple, trachea midline.] Eye: [Pupils are equal, round and reactive to light, extraocular movements are intact, normal conjunctiva.] Ears, nose, mouth and throat: oral mucosa moist. Cardiovascular: [Regular rate and rhythm, no murmur.] Respiratory: [Lungs are clear to auscultation, respirations are non-labored, breath sounds are equal.] Chest wall: [No tenderness, no deformity.] Gastrointestinal: [Soft, nontender, non distended, normal bowel sounds.] MSK: 5 out of 5 muscle strength x 4 extremities no calf pain or edema Lymphatics: [No lymphadenopathy.] Psychiatric: [Cooperative, appropriate mood & affect.] Neurological: [Alert and oriented to person, place, time, and situation, no focal neurological deficit observed.] Constitutional Vital Signs, click to edit/add: Last Vital Signs Temp 98.4 F 04/27/24 09:57 Pulse 89 04/27/24 09:57 Resp 16 04/27/24 09:57 BP 120/87 04/27/24 09:57 Pulse Ox 98 04/27/24 10:08 O2 Del Method Room Air 04/27/24 10:08 Course Vital Signs Vital signs: Vital Signs Temperature 98.4 F 04/27/24 09:57 Pulse Rate 89 04/27/24 09:57 Respiratory Rate 16 04/27/24 09:57 Blood Pressure 120/87 04/27/24 09:57 Pulse Oximetry 98 04/27/24 09:57 Oxygen Delivery Method Room Air 04/27/24 09:57 Temperature 98.4 F 04/27/24 09:57 Pulse Rate 89 04/27/24 09:57 Respiratory Rate 16 04/27/24 09:57 Blood Pressure 120/87 04/27/24 09:57 Pulse Oximetry 98 04/27/24 10:08 Oxygen Delivery Method Room Air 04/27/24 10:08 Medical Decision Making MDM Narrative Medical decision making narrative: Patient's labs are negative for acute. She had a CT brain in January which was negative. I did not think repeat scanning was indicated on today's visit. Patient will be given a prescription for Zofran for home. Continue to hydrate and rest as needed. Take the Zofran as needed. Return to ED if worsening symptoms, follow-up with family doctor. Differential Diagnosis Differential Diagnosis: Migraine, headache, viral syndrome, electrolyte abnormality Medical Records Medical records reviewed: Yes I reviewed the patient's medical records Lab Data Lab results reviewed: Yes I reviewed the patient's lab results Labs: Lab Results 04/27/24 04/27/24 Range/Units 10:03 10:19 WBC 7.1 (4.0-11.0) 10^3/uL RBC 4.60 (4.20-5.40) 10^6/uL Hgb 12.6 (12.0-16.0) g/dL Hct 39.6 (36.0-48.0) % MCV 86.1 (81.0-99.0) fL MCH 27.4 (26.7-34.0) pg MCHC 31.8 (29.9-35.2) g/dL RDW 13.2 (11.0-15.0) % Plt Count 282 (150-450) 10^3/uL MPV 9.1 L (9.5-13.5) fL Neut % (Auto) 52.5 (43.0-75.0) % Lymph % (Auto) 38.1 (20.5-60.0) % [place] % (Auto) 8.1 (1.7-12.0) % Eos % (Auto) 0.7 L (0.9-7.0) % Baso % (Auto) 0.3 (0.2-2.0) % Neut # (Auto) 3.8 (1.4-6.5) 10^3/uL Lymph # (Auto) 2.7 (1.2-3.8) 10^3/uL [place] # (Auto) 0.6 (0.3-0.8) 10^3/uL Eos # (Auto) 0.1 (0.0-0.7) 10^3/uL Baso # (Auto) 0.0 (0.0-0.1) 10^3/uL Abs Immat Gran (auto) 0.02 (0.00-0.03) 10^3/uL Imm/Tot Granulo (auto) 0.3 (0.0-0.5) % Sodium 137 (136-145) mmol/L Potassium 3.8 (3.5-5.1) mmol/L Chloride 103 (98-107) mmol/L Carbon Dioxide 25.8 (21.0-32.0) mmol/L Anion Gap 12.0 BUN 12.0 (7.0-18.0) mg/dL Creatinine 0.58 (0.55-1.02) mg/dL Est GFR ( Amer) >60 (>=60) Est GFR (Non-Af Amer) >60 (>=60) BUN/Creatinine Ratio 20.7 Glucose 93 (74-106) mg/dL Calcium 8.7 (8.5-10.1) mg/dL Total Bilirubin 0.4 (0.2-1.0) mg/dL AST 12 L (15-37) U/L ALT 22 (14-59) U/L Alkaline Phosphatase 74 (46-116) U/L Total Protein 7.1 (6.4-8.2) g/dL Albumin 3.3 L (3.4-5.0) g/dL Globulin 3.8 g/dL Albumin/Globulin Ratio 0.9 Urine Color Lt. yellow (YELLOW) Urine Clarity Clear (CLEAR) Urine pH 7.5 (5.0-9.0) Ur Specific [place] 1.020 (1.005-1.025) Urine Protein Negative (NEG/TRACE) mg/dL Urine Glucose (UA) Negative (NEGATIVE) mg/dL Urine Ketones Negative (NEGATIVE) mg/dL Urine Occult Blood Negative (NEGATIVE) Urine Nitrite Negative (NEGATIVE) Urine Bilirubin Negative (NEGATIVE) Urine Urobilinogen 1.0 (0.2-1.0) EU/dL Ur Leukocyte Esterase Small A (NEGATIVE) Urine RBC 2-5 A (0-2) #/HPF Urine WBC 2-5 A (NONE SEEN) #/HPF Ur Squamous Epith Cells Few A (NONE/RARE) #/LPF Urine Crystals None seen (None Seen) #/HPF Urine Bacteria Trace A (NONE SEEN) #/HPF Urine Casts None seen (NONE SEEN) #/LPF Urine Mucus None seen (NONE SEEN) Ur Culture Indicated? Yes Urine HCG, Qual Negative (NEGATIVE) Discharge Plan Discharge Stand Alone Forms: Portal Instructions Chief Complaint: Headache Clinical Impression: Headache Patient Disposition: Home, Self-Care Time of Disposition Decision: 11:13 Condition: Good Mode of Transportation: Private Vehicle Prescriptions / Home Meds: New ondansetron 4 mg tablet,disintegrating 4 mg PO DAILY PRN (Reason: nausea and vomiting) Qty: 15 0RF Print Language: Japanese Instructions: Acute Headache (ED) Referrals: Physician,Non-Staff, MD [Primary Care Provider] - 1 week
[2024-04-27 10:46] LABS: Bilirubin Urine NEGATIVE (NEGATIVE); Blood Urine NEGATIVE (NEGATIVE); Clarity Urine CLEAR (CLEAR); Color Urine LT. YELLOW (YELLOW); Glucose Urine UA NEGATIVE (NEGATIVE); HCG Qualitative Urine* NEGATIVE (NEGATIVE); Internal Control Within Normal Limits; Ketones Urine NEGATIVE (NEGATIVE); Leukocyte Esterase Urine SMALL (NEGATIVE); Nitrite Urine NEGATIVE (NEGATIVE); Protein Urine NEGATIVE (NEG/TRACE); pH Urine 7.5 (5.0-9.0)
[2024-04-27 10:51] LABS: Alanine Aminotransferase 22 U/L (14-59); Albumin Globulin Ratio 0.9; Albumin Level 3.3 g/dL (3.4-5.0); Alkaline Phosphatase 74 U/L (46-116); Aspartate Amino Transferase 12 U/L (15-37); BUN Creatinine Ratio 20.7; Bilirubin Total 0.4 mg/dL (0.2-1.0); Calcium 8.7 mg/dL (8.5-10.1); Carbon Dioxide 25.8 mmol/L (21.0-32.0); Chloride 103 mmol/L (98-107); Estimated GFR (African America >60 (>=60); Estimated GFR (Non-African Ame >60 (>=60); Globulin 3.8 g/dL; Glucose 93 mg/dL (74-106); Potassium 3.8 mmol/L (3.5-5.1); Sodium 137 mmol/L (136-145); Total Protein 7.1 g/dL (6.4-8.2)
[2024-04-27 10:57] LABS: Urine Microscopic Indicated YES
[2024-04-27 10:58] LABS: Bacteria Urine TRACE #/HPF (NONE SEEN); Mucus Urine NONE SEEN (NONE SEEN)
[2024-04-27 10:59] LABS: Cast Seen? NONE SEEN #/LPF (NONE SEEN); Crystals Seen? None Seen #/HPF (None Seen); Squamous Epithelial Cell Urine FEW #/LPF (NONE/RARE); Urine Culture Indicated YES
[2024-04-27 11:43] VITALS: BP 120/87; PULSE 87; O2SAT 99
== END 2024-04-27 11:45 | disposition home or self-care (01) ==
PROVIDERS: Emergency Provider Emergency Medicine
DX: R51.9 Headache, unspecified (principal); F41.9 Anxiety disorder, unspecified
CPT/HCPCS: 36415; 80053; 81001; 84703; 85025; 87086; 99283

== ENCOUNTER 2024-08-26 16:26 | Emergency (ER) | payer SELFPAY ==
[2024-08-26 16:31] VITALS: BP 131/80; PULSE 92; TEMP 37.2; O2SAT 99; BMI 38.7
--- NOTE | 2024-08-26 16:45 | XR_ITS ---
The [address] [address] Patient Name: CHEYENNE DASH MRN: [id number] date: 2000 Sex: F Assigned Patient Location: ER Current Patient Location: ER Accession/Order Number: [id number] Exam Date: 08/26/2024 17:08 Report Date: 08/26/2024 17:42 At the request of: YAA MORALES Procedure: XR chest 1V EXAM: XR chest 1V at 1659 hours HISTORY: fever/ cough COMPARISON: None. TECHNIQUE: AP upright portable chest x-ray FINDINGS: The heart is not enlarged and the vasculature is not distended. No acute infiltrate, effusion or pneumothorax is identified. The osseous structures are grossly intact. XR/XR chest 1V IMPRESSION: No acute infiltrate or evidence of cardiac decompensation. Electronically authenticated by: ASHLEY BAIG Date: 08/26/2024 17:42
--- NOTE | 2024-08-26 16:46 | ED_ITS ---
HPI - URI/Sore Throat General Chief Complaint: Upper Respiratory Infection Stated Complaint: FLU POSSIBLE Time Seen by Provider: 08/26/24 16:38 Source: patient Limitations: no limitations History of Present Illness HPI Narrative: 24-year-old female presents to the ER with concerns of generalized bodyaches, mild shortness of breath, nonproductive cough. Patient states symptoms started 3 days ago with sinus congestion and ear fullness. Subjective fever with bodyaches worsening over the past 3 days. She has some mild nausea but no vomiting. She denies diarrhea or abdominal pain. She is unsure of the possibility of . Patient sitting up breathing in no distress and she did not take any medication prior to arrival. MD elicited complaint: Reports fever, cough, nasal congestion and sinus pain Onset (ago): day(s) (3) Severity: mild Description of mucous: Reports watery Able to tolerate fluids by mouth: Yes Context: Denies sick contacts Associated symptoms: Denies denies other symptoms Related Data Previous Rx's ?Medication ?Instructions ?Recorded azithromycin 250 mg tablet See Rx Instructions PO .COMPLEX #6 08/26/24 (Zithromax Z-Kenny) tabs Allergies Allergy/AdvReac Type Severity Reaction Status Date / Time No Known Drug Allergies Allergy Verified 08/26/24 16:35 Review of Systems ROS Constitutional Reports: fever and chills; Denies: change in weight Eyes Denies: change in vision Ears, nose, mouth, and throat Reports: change in hearing (fullness), nasal congestion and post nasal drip; Denies: throat pain Cardiovascular Denies: chest pain, palpitations, edema or swelling of feet/ankles Respiratory Reports: shortness of breath, cough and wheezing; Denies: stridor Gastrointestinal Denies: abdominal pain, nausea or vomiting Genitourinary Denies: painful urination Musculoskeletal Denies: back pain, neck pain, extremity pain or extremity swelling Integumentary/Breast Denies: rash Neurological Denies: headache Psychiatric Denies: anxiety Endocrine Denies: excessive urination [facility] Medical History (Updated 08/26/24 @ 18:19 by ZEHRA Zuniga) No pertinent past medical history ?Z78.9 - Other specified health status (ICD-10) Surgical History (Updated 08/26/24 @ 16:36 by Tai Mi) No pertinent past surgical history ?Z78.9 - Other specified health status (ICD-10) Social History Little interest or pleasure in doing things: not at all Feeling down, depressed, or hopeless: not at all Exam Narrative Exam Narrative: Nurses notes and vital signs reviewed and patient is not hypoxic. General: The patient appears well and in no apparent distress. Patient is resting comfortably on cart. Skin: Warm, dry, no pallor noted. Head: Normocephalic, atraumatic, mild frontal and maxillary sinus tenderness. Neck: Supple, trachea mid-line, no tenderness, no lymphadenopathy Eye: Pupils are equal, round and reactive to light, EOMI Ears, Nose, Mouth, and Throat: TM are clear, normal light reflex, oral mucosa is moist, no posterior oropharynx erythema or hypertrophy, uvula is mid-line Cardiovascular: Regular Rate and Rhythm Respiratory: Patient is in no distress, no accessory muscle use, lungs are clear to auscultation, no wheezing, rales or rhonchi. Chest Wall: no tenderness Back: non-tender, no CVA tenderness Musculoskeletal: normal ROM, no tenderness, no swelling GI: Normal bowel sounds, no tenderness to palpation, no masses appreciated. No rebound, guarding, or rigidity noted. Neurological: A&O x4 Psychiatric: Cooperative Constitutional Vital Signs, click to edit/add: Last Vital Signs Temp 99 F 08/26/24 16:31 Pulse 92 H 08/26/24 16:31 Resp 20 08/26/24 16:31 BP 131/80 08/26/24 16:31 Pulse Ox 99 08/26/24 16:31 O2 Del Method Room Air 08/26/24 16:31 Course Vital Signs Vital signs: Vital Signs Temperature 99 F 08/26/24 16:31 Pulse Rate 92 H 08/26/24 16:31 Respiratory Rate 20 08/26/24 16:31 Blood Pressure 131/80 08/26/24 16:31 Pulse Oximetry 99 08/26/24 16:31 Oxygen Delivery Method Room Air 08/26/24 16:31 Temperature 99 F 08/26/24 16:31 Pulse Rate 92 H 08/26/24 16:31 Respiratory Rate 20 08/26/24 16:31 Blood Pressure 131/80 08/26/24 16:31 Pulse Oximetry 99 08/26/24 16:31 Oxygen Delivery Method Room Air 08/26/24 16:31 MDM - URI/Sore Throat MDM Narrative Medical decision making narrative: Patient presents with 3 days of subjective fever, body aches and sinus congestion. She notes nonproductive cough and burning sensation in her chest. She denies any chest pain or abdominal pain. Patient medicated with Tylenol for her body aches and headache. Influenza and COVID swab pending. Given cough and recent community pneumonia cases a chest x-ray will be performed and urinalysis to rule out infection/ concerns. Reevaluated, she reports no significant change in symptoms but appears to be feeling better at the bedside. Chest x-ray discussed, swabs negative along with urinalysis. We discussed patient's sinus tenderness, abrupt onset of symptoms for the past 3 days. Recommend [id number] medications for symptoms with decongestions discussed. Patient does not have a family doctor. We discussed a prescription of antibiotics if she is not getting better in the next 48 hours with [id number] medication. She will be given a list of family doctors for follow-up. She may return to the ER at any time if symptoms worsen or new symptoms develop. Patient encouraged not to vape with current illness. The patient is to followup with primary care physician in next 2-3 days or to return to the emergency department should any of the signs or symptoms worsen or new symptoms develop. Patient had questions answered. The patient agrees with the following Diagnosis and Treatment plan and the patient will be discharged home. Differential Diagnosis Differential diagnosis: Likely upper respiratory infection and sinusitis Lab Data Attestation: I reviewed the patient's lab results. Labs: Lab Results 08/26/24 08/26/24 Range/Units 16:41 17:09 Urine Color Lt. yellow (YELLOW) Urine Clarity Clear (CLEAR) Urine pH 6.0 (5.0-9.0) Ur Specific [place] 1.020 (1.005-1.025) Urine Protein Negative (NEG/TRACE) mg/dL Urine Glucose (UA) Negative (NEGATIVE) mg/dL Urine Ketones Negative (NEGATIVE) mg/dL Urine Occult Blood Negative (NEGATIVE) Urine Nitrite Negative (NEGATIVE) Urine Bilirubin Negative (NEGATIVE) Urine Urobilinogen 0.2 (0.2-1.0) EU/dL Ur Leukocyte Esterase Negative (NEGATIVE) Urine HCG, Qual Negative (NEGATIVE) Influenza Type A Ag Negative Influenza Type B Ag Negative SARS-CoV-2 Ag (CV2AG) Negative (NEGATIVE) Imaging Data Chest x-ray: Radiologist's impression: ITS Impressions Chest X-Ray 08/26/24 16:45 IMPRESSION: No acute infiltrate or evidence of cardiac decompensation. Electronically authenticated by: ASHLEY BAIG Date: 08/26/2024 17:42 Discharge Plan Discharge Chief Complaint: Upper Respiratory Infection Clinical Impression: Upper respiratory infection, Sinusitis Patient Disposition: Home, Self-Care Time of Disposition Decision: 17:50 Condition: Good Prescriptions / Home Meds: New azithromycin [Zithromax Z-Kenny] 250 mg tablet See Rx Instructions .ROUTE .COMPLEX Qty: 6 0RF Rx Instructions: For 250 mg dose pack: take 500 mg today (day 1), then 250 mg for 4 days (days 2-5) Print Language: Romanian Instructions: Sinusitis (ED) Additional Instructions: PCP list given. Referrals: Physician,Non-Staff, MD [Primary Care Provider] - 1 week Vannesa Matt NP [Physician] - 1 week
[2024-08-26] MEDS: ACETAMINOPHEN 500 MG TABLET 1000 MG PO (16:58)
[2024-08-26 17:02] LABS: Influenza Virus A Antigen Negative; Influenza Virus B Antigen Negative; Internal Control Within Normal Limits
[2024-08-26 17:03] LABS: Internal Control Within Normal Limits; SARS-CoV-2 Ag NEGATIVE (NEGATIVE)
[2024-08-26 17:22] LABS: Bilirubin Urine NEGATIVE (NEGATIVE); Blood Urine NEGATIVE (NEGATIVE); Clarity Urine CLEAR (CLEAR); Color Urine LT. YELLOW (YELLOW); Glucose Urine UA NEGATIVE (NEGATIVE); Ketones Urine NEGATIVE (NEGATIVE); Leukocyte Esterase Urine NEGATIVE (NEGATIVE); Nitrite Urine NEGATIVE (NEGATIVE); Protein Urine NEGATIVE (NEG/TRACE); Urobilinogen Urine 0.2 EU/dL (0.2-1.0)
[2024-08-26 17:25] LABS: HCG Qualitative Urine* NEGATIVE (NEGATIVE); Internal Control Within Normal Limits; Urine Microscopic Indicated NO
[2024-08-26 18:22] VITALS: BP 128/86; PULSE 88; O2SAT 98
== END 2024-08-26 18:23 | disposition home or self-care (01) ==
PROVIDERS: Personal Emergency Response Attendant; Emergency Provider Emergency Medicine
DX: J01.90 Acute sinusitis, unspecified (principal)
CPT/HCPCS: 71045; 81003; 84703; 87804; 87811; 99284